=== PATIENT | male | born 1950 | race Hispanic/Latino ===

== ENCOUNTER 2019-03-16 08:37 | Emergency (ER) | payer MEDICARE, OTHER ==
[~2019-03-16] VITALS: Ht 167.6 cm; Wt 78.5 kg
--- OUTSIDE RECORDS SUMMARY | 2019-03-16 08:40 | XMS REPORT | Summary of Care ---
Author Author [facility] Organization [facility] Address Unknown Phone Unavailable Encounter [facility] Vic[facility](FIN) [id number] Date(s): 06/03/17 - 06/03/17 [facility] [address] [place] [address]- [phone] Discharge Disposition: Home or Self Care Attending Physician: Radha Sal MD Referring Physician: Radha Sal MD Vital Signs No data available for this section Problem List Condition Effective Dates Status Health Status Informant Benign essential 06/27/13 Active hypertension(Confirm ed)1, 2 Benign prostatic 06/27/13 Active hyperplasia3 Ex-smoker(Confirmed) 10/19/14 Active 4 Helicobacter pylori Active antibody positive(Confirmed) History of subtotal 11/16/14 Active thyroidectomy5, 6 History of partial Active thyroidectomy(Confir med) Hyperlipidemia(Confi 06/27/13 Active rmed)7, 8 Lung Active nodule(Confirmed) Thyroid 11/16/14 Active nodule(Confirmed)9, 10 Type II diabetes Active mellitus uncontrolled(Confirm ed) 1Data migrated from [employer] on 03/05/15. 2Data migrated from [employer] on 12/26/14. 3Data migrated from [employer] on 12/26/14. 4Data migrated from [employer] on 01/31/15. 5Data migrated from [employer] on 02/28/15. 6Data migrated from [employer] on 01/31/15. 7Data migrated from [employer] on 03/05/15. 8Data migrated from [employer] on 12/26/14. 9Data migrated from [employer] on 02/28/15. 10Data migrated from [employer] on 01/31/15. Allergies, Adverse Reactions, Alerts Substance Reaction Severity Status penicillins Active Medications No data available for this section Results No data available for this section Immunizations Given and Recorded Vaccine Date Status Refusal Reason Hx influenza vaccine-unspecified1 06/27/13 Given influenza virus vaccine, inactivated 06/25/15 Given influenza virus vaccine, inactivated2 06/27/13 Given pneumococcal 23-valent vaccine3 10/19/14 Given 1Result Comment: done. Migrated from OBS ; Data migrated from [employer] on 08/28/2015. 2Result Comment: fluzone (>3 yrs.) [[id number]]. Migrated from OBS ; Data migrated from [employer] on 08/28/2015. 3Result Comment: [facility]#[id number] ; Data migrated from [employer] on 08/29/2015. Procedures Procedure Date Related Diagnosis Body Site Partial thyroidectomy2012 1Left sided. Social History Social History Type Response Alcohol Current, Type Beer. Frequency: Daily. Smoking Status Former smoker; Ready to change: No; Concerns about tobacco use in household: No; Exposure to Tobacco Smoke None; Cigarette Smoking Last 365 Days No; Reg Smoking Cessation Counseling No Assessment and Plan No data available for this section
--- OUTSIDE RECORDS SUMMARY | 2019-03-16 08:40 | XMS REPORT | Summary of Care ---
Author Author [facility] Organization [facility] Address Unknown Phone Unavailable Encounter [facility](FIN) [id number] Date(s): 08/27/17 - 08/27/17 [facility] [address], [address] [place] [address]- [phone] Discharge Disposition: Home or Self Care Attending Physician: Radha Sal MD Vital Signs Most recent to 1 2 oldest [Reference Range]: Height 170.18 cm (08/27/17 7:44 AM) Temperature Oral 97.5 DegF [96.4-99.1 DegF] (08/27/17 7:44 AM) Blood Pressure 129/65 mmHg 143/83 mmHg [90-140/60-90 mmHg] (08/27/17 7:56 AM) *HI* (08/27/17 7:44 AM) Respiratory Rate 16 BRMIN [14-20 BRMIN] (08/27/17 7:44 AM) Peripheral Pulse 62 bpm Rate [60-100 bpm] (08/27/17 7:44 AM) Weight 78.182 kg (08/27/17 7:44 AM) Body Mass Index 27 m2 (08/27/17 7:44 AM) Problem List Condition Effective Dates Status Health Status Informant Benign essential 06/27/13 Active hypertension(Confirm ed)1, 2 Benign prostatic 06/27/13 Active hyperplasia(Confirme d)3 Ex-smoker(Confirmed) 10/19/14 Active 4 Helicobacter pylori Active antibody positive(Confirmed) History of partial Active thyroidectomy(Confir med) Hyperlipidemia(Confi 06/27/13 Active rmed)5, 6 Lung Active nodule(Confirmed) Thyroid 11/16/14 Active nodule(Confirmed)7, 8 Type II diabetes Active mellitus uncontrolled(Confirm ed) 1Data migrated from [employer] on 03/05/15. 2Data migrated from [employer] on 12/26/14. 3Data migrated from [employer] on 12/26/14. 4Data migrated from [employer] on 01/31/15. 5Data migrated from [employer] on 03/05/15. 6Data migrated from [employer] on 12/26/14. 7Data migrated from [employer] on 02/28/15. 8Data migrated from [employer] on 01/31/15. Allergies, Adverse Reactions, Alerts Substance Reaction Severity Status penicillins Active Medications clarithromycin 500 mg oral tablet 500 mg=1 tab, PO, Q12H, X 14 day, # 28 tab, 0 Refill(s), Pharmacy: [facility] Start Date: 08/29/17 Stop Date: 09/12/17 Status: Completed metroNIDAZOLE 500 mg oral tablet 500 mg=1 tab, PO, BID, X 14 day, # 28 tab, 0 Refill(s), [facility]acy: [facility] Start Date: 08/29/17 Stop Date: 09/12/17 Status: Completed pantoprazole 40 mg oral enteric coated tablet 40 mg=1 tab, PO, Daily, 20 minutes before breakfast, # 30 tab, 1 Refill(s), Phar ida: [facility] Start Date: 08/29/17 Status: Ordered Results No data available for this section Immunizations Given and Recorded Vaccine Date Status Refusal Reason influenza virus vaccine, inactivated1 06/17/17 Given influenza virus vaccine, inactivated 06/25/15 Given influenza virus vaccine, inactivated2 06/27/13 Given pneumococcal 23-valent vaccine3 10/19/14 Given Hx influenza vaccine-unspecified4 06/27/13 Given 1Result Comment: Patient waited in room ten mins no allergic reaction. 2Result Comment: fluzone (>3 yrs.) [[id number]]. Migrated from OBS ; Data migrated from [employer] on 08/28/2015. 3Result Comment: [facility]#[id number] ; Data migrated from [employer] on 08/29/2015. 4Result Comment: done. Migrated from OBS ; Data migrated from [employer] on 08/28/2015. Procedures Procedure Date Related Diagnosis Body Site Status Partial thyroidectomy1 2012 Completed 1Left sided. Social History Social History Type Response Alcohol Current, Type Beer. Frequency: Daily. Smoking Status Former smoker; Ready to change: No; Concerns about tobacco use in household: No; Exposure to Tobacco Smoke None; Cigarette Smoking Last 365 Days No; Reg Smoking Cessation Counseling No entered on: 08/27/17 Assessment and Plan No data available for this section
--- OUTSIDE RECORDS SUMMARY | 2019-03-16 08:40 | XMS REPORT | Summary of Care ---
Author Author [facility] Organization [facility] Address Unknown Phone Unavailable Encounter GERMÁN Zhang(FIN) [id number] Date(s): 06/10/18 - 06/10/18 [facility] [address] [place] [address]- [phone] Discharge Disposition: Home or Self Care Attending Physician: Radha Sal MD Vital Signs Most recent to 1 oldest [Reference Range]: Height 170.18 cm (06/10/18 12:22 PM) Temperature Oral 98.5 DegF [96.4-99.1 DegF] (06/10/18 12:22 PM) Blood Pressure 112/64 mmHg [90-140/60-90 mmHg] (06/10/18 12:22 PM) Respiratory Rate 14 BRMIN [14-20 BRMIN] (06/10/18 12:22 PM) Peripheral Pulse 87 bpm Rate [60-100 bpm] (06/10/18 12:22 PM) Weight 78.409 kg (06/10/18 12:22 PM) Body Mass Index 27.07 m2 (06/10/18 12:22 PM) Problem List Condition Effective Dates Status Health Status Informant Benign essential 06/27/13 Active hypertension(Confirm ed)1, 2 Benign prostatic 06/27/13 Active hyperplasia(Confirme d)3 Ex-smoker(Confirmed) 10/19/14 Active 4 Gastritis(Confirmed) Active Helicobacter pylori Active antibody positive(Confirmed) History of partial Active thyroidectomy(Confir med) Hypothyroidism(Confi Active rmed) Lung Active nodule(Confirmed) Mixed Active hyperlipidemia(Confi rmed) Thyroid 11/16/14 Active nodule(Confirmed)5, 6 Type II diabetes Active mellitus uncontrolled(Confirm ed) 1Data migrated from [employer] on 03/05/15. 2Data migrated from [employer] on 12/26/14. 3Data migrated from [employer] on 12/26/14. 4Data migrated from [employer] on 01/31/15. 5Data migrated from [employer] on 02/28/15. 6Data migrated from [employer] on 01/31/15. Allergies, Adverse Reactions, Alerts Substance Reaction Severity Status penicillins Active Medications Bromfed DM oral syrup 5 mL, PO, TID, PRN cough, X 8 day, # 120 mL, 0 Refill(s), Pharmacy: [facility] Start Date: 06/10/18 Stop Date: 06/18/18 Status: Completed glipiZIDE 5 mg oral tablet 5 mg=1 tab, PO, BID-Before Meals, # 180 tab, 1 Refill(s), Pharmacy: [facility] 5612 Start Date: 06/10/18 Stop Date: 07/01/18 Status: Completed lisinopril 5 mg oral tablet 5 mg=1 tab, PO, Daily, # 90 tab, 1 Refill(s), Pharmacy: [facility] Start Date: 06/10/18 Stop Date: 07/01/18 Status: Completed metFORMIN 500 mg oral tablet 1,000 mg=2 tab, PO, BID, # 360 tab, 1 Refill(s), Pharmacy: [facility] Start Date: 06/10/18 Stop Date: 07/01/18 Status: Completed pantoprazole 40 mg oral enteric coated tablet 40 mg=1 tab, PO, Daily, 20 minutes before breakfast, # 90 tab, 1 Refill(s), Megan prieto: [facility] Start Date: 06/10/18 Stop Date: 12/08/18 Status: Discontinued triamcinolone topical 0.1% cream 1 appl, TOP, BID, Apply to affected area(s), X 14 day, # 80 gm, 0 Refill(s), Wojciech han: [facility] Start Date: 06/10/18 Stop Date: 06/24/18 Status: Completed Results No data available for this section Immunizations Given and Recorded Vaccine Date Status Refusal Reason influenza virus vaccine, inactivated 06/10/18 Given influenza virus vaccine, inactivated1 06/17/17 Given influenza virus vaccine, inactivated 06/25/15 Given influenza virus vaccine, inactivated2 06/27/13 Given pneumococcal 23-valent vaccine3 10/19/14 Given Hx influenza vaccine-unspecified4 06/27/13 Given 1Result Comment: Patient waited in room ten mins no allergic reaction. 2Result Comment: fluzone (>3 yrs.) [[id number]]. Migrated from OBS ; Data migrated from [employer] on 08/28/2015. 3Result Comment: formerly named [facility]#[id number] ; Data migrated from [employer] on 08/29/2015. 4Result Comment: done. Migrated from OBS ; Data migrated from [employer] on 08/28/2015. Procedures Procedure Date Related Diagnosis Body Site Status Diabetic Retinopathy Study 7 field 06/10/18 Completed stereoscopic fundus photography1 Partial thyroidectomy2 2012 Completed 1diabetes mellitus with mild nonproliferative diabetic retinopathy without macular edema, bilateral Follow up in 6 months 2Left sided. Social History Social History Type Response Alcohol Past, Type Beer. Frequency: Daily. Smoking Status Former smoker; Ready to change: No; Concerns about tobacco use in household: No; Exposure to Tobacco Smoke None; Cigarette Smoking Last 365 Days No; Reg Smoking Cessation Counseling No entered on: 12/08/18 Assessment and Plan No data available for this section
--- OUTSIDE RECORDS SUMMARY | 2019-03-16 08:40 | XMS REPORT | Continuity of Care Document ---
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 [facility] [place] Pleural effusion (disorder) Active 02/08/2015 Problem 03/25/2015 Data migrated from [employer] on 02/28/15. [facility] PLEURAL EFFUSION Active 02/08/2015 Condition 02/08/2015 [facility] ABNORMAL LIVER FUNCTION TESTS Active 02/08/2015 Condition 02/08/2015 [facility] Group Thyroid nodule (disorder) Active 11/16/2014 Problem 02/27/2019 Data migrated from [employer] on 02/28/15. Data migrated from [employer] on 01/31/15. [facility] Group, [facility] [place],[facility] THYROIDECTOMY, SUBTOTAL, HX OF Active 11/16/2014 Condition 02/08/2015 [facility] Group THYROID NODULE Active 11/16/2014 Condition 02/08/[address] [facility] 240.9 BIG THYROID Active 11/09/2014 [facility] Ex-smoker (finding) Active 10/19/2014 Problem 02/27/2019 Data migrated from [employer] on 01/31/15. [facility] Abdominal aortic aneurysm (disorder) Active 10/19/2014 Problem 03/25/2015 Data migrated from [employer] on 01/31/15. [facility] Cough (finding) Active 10/19/2014 Problem 03/25/2015 Data migrated from [employer] on 01/31/15. [facility] [place] Thyroid lump (disorder) Active 10/19/2014 Problem 03/25/2015 Data migrated from [employer] on 01/31/15. [facility] [place] Onychomycosis of toenails (disorder) Active 10/19/2014 Problem 03/25/2015 Data migrated from [employer] on 01/31/15. [facility] Screening - health check (procedure) Active 10/19/2014 Problem 03/25/2015 Data migrated from [employer] on 01/31/15. [facility] Screening for malignant neoplasm of prostate (procedure) Active 10/19/2014 Problem 03/25/2015 Data migrated from [employer] on 01/31/15. [facility] Tinea pedis (disorder) Active 10/19/2014 Problem 03/25/2015 Data migrated from [employer] on 01/31/15. [facility] BODY MASS INDEX 28.0-28.9, ADULT Active 10/19/2014 Condition 02/08/2015 [facility] Group THYROID MASS Active 10/19/2014 Condition 02/08/2015 [facility] AAA Active 10/19/2014 Condition 02/08/2015 [facility] Group HX OF SMOKER Active 10/19/2014 Condition 02/08/2015 [facility] Group COUGH Active 10/19/2014 Condition 02/08/2015 [facility] Group PROSTATE NEOPLASM SCREENING Active 10/19/2014 Condition 02/08/2015 [facility] Group ONYCHOMYCOSIS, TOENAILS Active 10/19/2014 Condition 02/08/2015 [facility] Group TINEA PEDIS Active 10/19/2014 Condition 02/08/2015 [facility] Group PREVENTIVE HEALTH CARE Active 10/19/2014 Condition 02/08/2015 [facility] Group SCREENING FOR GLAUCOMA Active 10/19/2014 Condition 02/08/2015 [facility] NEED FOR PROPHYLACTIC VACCINATION AGAINST STREPTOCOCCUS PNEUMONIAE [PNEUMOCOCCUS] Active 10/19/2014 Condition 02/08/2015 [facility] Group DIABETES MELLITUS, TYPE II, UNCONTROLLED Active 07/04/2013 Condition 02/08/2015 [facility] Hyperlipidemia (disorder) Active 06/27/2013 Problem 10/21/2018 Data migrated from [employer] on 03/05/15. Data migrated from [employer] on 12/26/14. [facility], [facility] [place],[facility] Benign essential hypertension (disorder) Active 06/27/2013 Problem 02/27/2019 Data migrated from [employer] on 03/05/15. Data migrated from [employer] on 12/26/14. [facility] Group, [facility] [place],[facility] Benign prostatic hyperplasia (disorder) Active 06/27/2013 Problem 02/27/2019 Data migrated from [employer] on 12/26/14. [facility] Group, VISHNUD [place],[facility] Fatigue (finding) Active 06/27/2013 Problem 03/25/2015 Data migrated from [employer] on 03/05/15. Data migrated from [employer] on 12/26/14. [facility] [place] Diabetes mellitus type 2 (disorder) Active 06/27/2013 Problem 03/25/2015 Data migrated from [employer] on 03/05/15. Data migrated from [employer] on 12/26/14. [facility] DIABETES MELLITUS, TYPE II Inactive 06/27/2013 Condition 02/08/2015 Medical Group ESSENTIAL HYPERTENSION, BENIGN Active 06/27/2013 Condition 02/08/2015 [facility] HYPERLIPIDEMIA Active 06/27/2013 Condition 02/08/[address] [facility] SCREENING, COLON CANCER Active 06/27/2013 Condition 02/08/[address] [facility] FATIGUE Active 06/27/2013 Condition 02/08/2015 [facility] Group HYPERTROPHY PROSTATE W/O UR OBST & OTH LUTS Active 06/27/2013 Condition 02/08/2015 [facility] Group ACUTE BRONCHITIS Inactive 06/27/2013 Condition 02/08/2015 [facility] Group Helicobacter pylori antibody above reference range (finding) Active [facility] of subtotal thyroidectomy (situation) Active Problem 02/27/2019 [facility], [facility] [place],[facility] Lung mass (finding) Active Problem 02/27/2019 Medical [facility] Type II diabetes mellitus uncontrolled (finding) Active Problem 02/27/2019 [facility], [facility] [place],[facility] Gastritis (disorder) Active Problem 02/27/2019 Medical [facility] Hypothyroidism (disorder) Active Problem 02/27/[address] [facility] Mixed hyperlipidemia (disorder) Active Problem 02/27/[address] [facility] GOITER NOS Active [facility] ABDOM AORTIC ANEURYSM Active [place] COUGH Active [facility] GENERALIZED ENLARGED LYMPH NODES Active [facility] NONTOXIC GOITER, UNSPECIFIED Active [facility] NONTOXIC SINGLE THYROID NODULE Active [facility] Medications Medication Details Route Status Patient Instructions Ordering Provider Order Date Source pantoprazole 40 mg oral enteric coated tablet 40 mg=1 tab, PO, Daily, 20 minutes before breakfast, # 90 tab, 1 Refill(s), Pharmacy: [place] [address] Active 02/24/2019 [facility] Group lisinopril 5 mg oral tablet =1 tab, PO, Daily, # 90 tab, 1 Refill(s), Pharmacy: [place] [address] Active 02/24/2019 [facility] Metformin hydrochloride 500 MG Oral Tablet See Instructions, TAKE 2 TABLETS BY MOUTH IN THE MORNING AND 1 TABLET BY MOUTH IN THE EVENING WITH MEALS, # 270 tab, 1 Refill(s), Pharmacy: [place] [address] Active 02/24/2019 [facility] Glipizide 5 MG Oral Tablet =1 tab, PO, BID-Before Meals, S., # 180 tab, 1 Refill(s), Pharmacy: [place] [address] Active 02/24/2019 [facility] levothyroxine 25 mcg (0.025 mg) oral tablet 25 microgram=1 tab, PO, Daily, # 90 tab, 0 Refill(s), Pharmacy: [place] [address] Active 02/24/2019 [facility] Metformin hydrochloride 500 MG Oral Tablet See Instructions, TAKE 2 TABLETS BY MOUTH IN THE MORNING AND 1 TABLET BY MOUTH IN THE EVENING WITH MEALS, # 270 tab, 1 Refill(s), Pharmacy: [place] [address] Active 12/08/2018 [facility] lisinopril 5 mg oral tablet =1 tab, PO, Daily, # 90 tab, 1 Refill(s), Pharmacy: [place] [address] Active 12/08/2018 [facility] Glipizide 5 MG Oral Tablet =1 tab, PO, BID-Before Meals, S., # 180 tab, 1 Refill(s), Pharmacy: [place] [address] Active 12/08/2018 [facility] pantoprazole 40 mg oral enteric coated tablet 40 mg=1 tab, PO, Daily, 20 minutes before breakfast, # 90 tab, 1 Refill(s), Pharmacy: [place] [address] Active 12/08/2018 [facility] Group Nystatin [id number] UNT/ML Topical Cream 1 appl, TOP, QID, X 7 day, # 30 gm, 1 Refill(s), Pharmacy: [facility] Active 12/08/2018 [facility] Acetic Acid 20 MG/ML Otic Solution 5 drp, BOTH EARS, TID, X 7 day, # 15 ml, 0 Refill(s), Pharmacy: [facility] Active 10/04/2018 [facility] Group Triamcinolone Acetonide 1 MG/ML Topical Cream 1 appl, TOP, BID, Apply to affected area(s), X 14 day, # 80 gm, 0 Refill(s), Pharmacy: [facility] No Longer Active 06/10/2018 [facility] Brompheniramine Maleate 0.4 MG/ML / Dextromethorphan Hydrobromide 2 MG/ML / Pseudoephedrine Hydrochloride 6 MG/ML Oral Solution [Bromfed DM] 5 mL, PO, TID, PRN cough, X 8 day, # 120 mL, 0 Refill(s), Pharmacy: [facility] No Longer Active 06/10/2018 [facility] Metformin hydrochloride 500 MG Oral Tablet 1,000 mg=2 tab, PO, BID, # 360 tab, 1 Refill(s), Pharmacy: [facility] No Longer Active 06/10/2018 [facility] Group pantoprazole 40 mg oral enteric coated tablet 40 mg=1 tab, PO, Daily, 20 minutes before breakfast, # 90 tab, 1 Refill(s), Pharmacy: [facility] No Longer Active 06/10/2018 [facility] Glipizide 5 MG Oral Tablet 5 mg=1 tab, PO, BID-Before Meals, # 180 tab, 1 Refill(s), Pharmacy: [facility] No Longer Active 06/10/2018 [facility] Group lisinopril 5 mg oral tablet 5 mg=1 tab, PO, Daily, # 90 tab, 1 Refill(s), Pharmacy: [facility] No Longer Active 06/10/2018 [facility] Brompheniramine Maleate 0.4 MG/ML / Dextromethorphan Hydrobromide 2 MG/ML / Pseudoephedrine Hydrochloride 6 MG/ML Oral Solution [Bromfed DM] 5 mL, PO, TID, PRN cough, X 8 day, # 120 mL, 0 Refill(s), Pharmacy: [facility] 561 No Longer Active 03/25/2018 [facility] Group pantoprazole 40 mg oral enteric coated tablet 40 mg=1 tab, PO, Daily, 20 minutes before breakfast, # 30 tab, 1 Refill(s), Pharmacy: [facility] Active 12/24/2017 [facility] Metformin hydrochloride 500 MG Oral Tablet See Instructions, 2 tabs in AM and 1 tab in PM with meals, # 270 tab, 1 Refill(s), Pharmacy: [facility] Active 12/24/2017 [facility] Group lisinopril 5 mg oral tablet 5 mg=1 tab, PO, Daily, # 90 tab, 1 Refill(s), Pharmacy: [facility] Active 12/24/2017 [facility] Group Glipizide 5 MG Oral Tablet 5 mg=1 tab, PO, BID-Before Meals, # 180 tab, 1 Refill(s), Pharmacy: [facility] Active 12/24/2017 [facility] Group pantoprazole 40 mg oral enteric coated tablet 40 mg=1 tab, PO, Daily, 20 minutes before breakfast, # 30 tab, 1 Refill(s), Pharmacy: [facility] Active 08/30/2017 [facility] Group Metronidazole 500 MG Oral Tablet 500 mg=1 tab, PO, BID, X 14 day, # 28 tab, 0 Refill(s), Pharmacy: [facility] No Longer Active 08/30/2017 [facility] Group clarithromycin 500 mg oral tablet 500 mg=1 tab, PO, Q12H, X 14 day, # 28 tab, 0 Refill(s), Pharmacy: [facility] No Longer Active 08/30/2017 [facility] Group pantoprazole 40 mg oral enteric coated tablet 40 mg=1 tab, PO, Daily, 20 minutes before breakfast, # 30 tab, 3 Refill(s), Pharmacy: [facility] Active 06/17/2017 Medical Group NYSTATIN-TRIAMCINOLONE [id number] UNIT/GM-% CREA Apply afected area twice a day as needed No Longer Active 10/19/2014 [facility] Group CORTISPORIN [id number] SOLN apply 4 ggts in ears three times a day for a week No Longer Active 10/19/2014 [facility] Group METFORMIN HCL 1000 MG TABS Take one tablet by mouth two times a day Active 07/04/2013 [facility] ATORVASTATIN CALCIUM 10 MG TABS Take one tablet by mouth once a day Active 07/04/2013 [facility] ALBUTEROL SULFATE 0.63 MG/3ML NEBU nebs every 6 hours only as needed No Longer Active 07/04/2013 [facility] GLIPIZIDE 5 MG TABS Take one tablet by mouth two times a day Active 07/04/2013 [facility] ATORVASTATIN CALCIUM 10 MG TABS Take one tablet by mouth once a day Active 07/04/2013 [facility] METFORMIN HCL 500 MG TABS Take one tablet by mouth two times a day Active 07/04/2013 [facility] GLIPIZIDE 5 MG TABS Take one tablet by mouth two times a day Active 07/04/2013 [facility] METFORMIN HCL 500 MG TABS Take one tablet by mouth two times a day Active 07/04/2013 [facility] ZITHROMAX Z-NEHEMIAS 250 MG TABS Use as directed No Longer Active 06/27/2013 [facility] MUCINEX 600 MG [id number] Take one tablet every 12 hours No Longer Active 06/27/2013 [facility] LISINOPRIL 10 MG TABS take one tablet by mouth daily Active 06/27/2013 [facility] MUCINEX 600 MG [id number] Take one tablet every 12 hours No Longer Active 06/27/2013 [facility] LISINOPRIL 10 MG TABS take one tablet by mouth daily Active 06/27/2013 [facility] Allergies, Adverse Reactions, Alerts Substance Category Reaction Severity Reaction type Status Date Reported Comments Source PCN Drug allergy PCN 06/27/2013 [facility] penicillins Assertion Drug allergy Active [facility] Immunizations Immunization Date Given Site Status Last Updated Comments Source influenza virus vaccine, inactivated 06/10/2018 Left Deltoid completed [place] influenza virus vaccine, inactivated<sup>1</sup> 06/17/2017 Left Deltoid completed [facility] Result Comment: Patient waited in room ten mins no allergic reaction. [facility] influenza virus vaccine, inactivated 06/25/2015 Left Deltoid completed [facility] pneumococcal 23-valent vaccine<sup>3</sup> 10/19/2014 Left Deltoid completed [facility] Result Comment: [facility]#[id number] ; Data migrated from [employer] on 08/29/2015. [facility] Hx influenza vaccine-unspecified<sup>1</sup> 06/27/2013 completed [facility] Result Comment: done. Migrated from OBS ; Data migrated from [employer] on 08/28/2015. [facility] Hx influenza vaccine-unspecified<sup>4</sup> 06/27/2013 completed [facility] Result Comment: done. Migrated from OBS ; Data migrated from [employer] on 08/28/2015. [facility] influenza immunization (Flu Vax) has been administered 06/27/2013 completed [facility] influenza virus vaccine, inactivated<sup>2</sup> 06/27/2013 Left Deltoid completed [facility] Result Comment: fluzone (>3 yrs.) [[id number]]. Migrated from OBS ; Data migrated from [employer] on 08/28/2015. [facility] Results Order Name Results Value Reference Range Date Interpretation Comments Source Chemistry HGBA1C 7.2 - 5.6 02/03/2015 [facility] Chemistry SODIUM 138 MEQ/L 135 - 145 02/03/2015 [facility] Chemistry POTASSIUM 4.0 MEQ/L 3.5 - 5.1 02/03/2015 [facility] Chemistry CREATININE 0.8 0.5 - 1.4 02/03/2015 [facility] Chemistry BUN 15 7 - 22 02/03/[address] [facility] Chemistry BUN/CREAT 19 6 - 25 02/03/2015 [facility] Chemistry ALBUMIN 4.1 3.5 - 5.0 02/03/2015 [facility] Chemistry CALCIUM 9.4 8.5 - 10.5 02/03/2015 [facility] Chemistry SGPT (ALT) 61 0 - 65 02/03/2015 [facility] Chemistry SGOT (AST) 46 0 - 37 02/03/2015 [facility] Chemistry ALK PHOS 106 39 - 136 02/03/2015 [facility] Chemistry HGBA1C 7.2 - 5.6 02/01/2015 [facility] Chemistry SODIUM 138 MEQ/L 135 - 145 02/01/2015 [facility] Chemistry POTASSIUM 4.0 MEQ/L 3.5 - 5.1 02/01/2015 [facility] Chemistry CREATININE 0.8 0.5 - 1.4 02/01/2015 [facility] Chemistry BUN 15 7 - 22 02/01/2015 [facility] Chemistry BUN/CREAT 19 6 - 25 02/01/2015 [facility] Chemistry ALBUMIN 4.1 3.5 - 5.0 02/01/2015 [facility] Chemistry CALCIUM 9.4 8.5 - 10.5 02/01/2015 [facility] Chemistry SGPT (ALT) 61 0 - 65 02/01/2015 [facility] Chemistry SGOT (AST) 46 0 - 37 02/01/2015 [facility] Chemistry ALK PHOS 106 39 - 136 02/01/2015 [facility] Group Chemistry HEMOCCULT Negative 10/24/2014 [facility] Group Chemistry HEMOCCULT Negative 10/23/2014 [facility] Chemistry HEMOCCULT Negative 10/22/2014 [facility] Group Chemistry HGBA1C 8.5 - 5.6 10/19/2014 [facility] Chemistry TSH 3.210 0.360 - 3.740 10/19/2014 [facility] Chemistry CHOLESTEROL 125 - 199 10/19/2014 [facility] Chemistry TRIGLYCERIDE 122 - 149 10/19/2014 [facility] Chemistry HDL 41 >=61 10/19/2014 [facility] Chemistry LDL 60 - 99 10/19/2014 [facility] Chemistry SODIUM 138 MEQ/L 135 - 145 10/19/2014 [facility] Chemistry POTASSIUM 3.6 MEQ/L 3.5 - 5.1 10/19/2014 [facility] Chemistry CREATININE 0.8 0.5 - 1.4 10/19/2014 [facility] Chemistry BUN 12 7 - 22 10/19/2014 [facility] Chemistry BUN/CREAT 15 6 - 25 10/19/2014 [facility] Chemistry ALBUMIN 3.9 3.5 - 5.0 10/19/2014 [facility] Chemistry CALCIUM 8.9 8.5 - 10.5 10/19/2014 [facility] Chemistry SGPT (ALT) 50 0 - 65 10/19/2014 [facility] Chemistry SGOT (AST) 36 0 - 37 10/19/2014 [facility] Chemistry ALK PHOS 120 39 - 136 10/19/2014 [facility] Chemistry PSA 1.75 0.00 - 4.00 10/19/2014 [facility] Hematology HGB 15.4 14.0 - 18.0 10/19/2014 [facility] Hematology HCT 44.1 42.0 - 54.0 10/19/2014 [facility] Hematology PLATELETS 149 K/CMM 133 - 450 10/19/2014 [facility] Chemistry HGBA1C 8.0 - 5.6 06/27/2013 [facility] Chemistry TSH 1.730 0.360 - 3.740 06/27/2013 [facility] Chemistry CHOLESTEROL 143 - 199 06/27/2013 [facility] Chemistry TRIGLYCERIDE 122 - 149 06/27/2013 [facility] Chemistry HDL 37 >=61 06/27/2013 [facility] Chemistry LDL 82 - 99 06/27/2013 [facility] Chemistry SODIUM 140 MEQ/L 135 - 145 06/27/2013 [facility] Chemistry POTASSIUM 3.8 MEQ/L 3.5 - 5.1 06/27/2013 [facility] Chemistry CREATININE 0.9 0.5 - 1.4 06/27/2013 [facility] Chemistry BUN 16 7 - 22 06/27/2013 [facility] Chemistry BUN/CREAT 18 6 - 25 06/27/2013 [facility] Chemistry ALBUMIN 3.9 3.5 - 5.0 06/27/2013 [facility] Chemistry CALCIUM 9.2 8.5 - 10.5 06/27/2013 [facility] Chemistry SGPT (ALT) 46 0 - 65 06/27/2013 [facility] Chemistry SGOT (AST) 35 0 - 37 06/27/2013 [facility] Chemistry ALK PHOS 111 39 - 136 06/27/2013 [facility] Chemistry PSA 0.91 0.00 - 4.00 06/27/2013 [facility] Hematology HGB 15.5 14.0 - 18.0 06/27/2013 [facility] Hematology HCT 45.3 42.0 - 54.0 06/27/2013 [facility] Hematology PLATELETS 149 K/CMM 133 - 450 06/27/2013 [facility] Pathology Reports No Data Provided for This Section Diagnostic Reports Report Value Date Source Thyroid US Clinical Indication: - thyroid nodule Comparison: 06/03/2017 TECHNIQUE: Sonographic evaluation of the thyroid gland is performed FINDINGS: The right thyroid gland measures 3.6 x 1.6 x 1.3 cm. The left thyroid gland measures 1.9 x 0.8 x 1.0 cm. The thyroid isthmus is unremarkable There is normal bilateral thyroid gland contour and morphology. There is normal thyroid parenchymal echotexture. There are no solid or cystic nodules noted. There is a colloid cyst in the medial right midpole which measures 5 mm in size. There is hyperechoic focus with posterior shadowing in the thyroid isthmus. There is no adjacent jugular chain lymphadenopathy. IMPRESSION: 1. Stable 5 mm colloid cyst within the right medial mid pole. 2. Stable Calcification of the thyroid isthmus is noted. Recommendations for Thyroid Nodules 1 cm or Larger in Maximum Diameter: AJR: 178, September 2001 ULTRASOUND FEATURE RECOMMENDATION Solitary Nodule - Microcalcifications - Strongly consider US-guided FNA if > 1 cm - Solid or coarse calcifications - Strongly consider US-guided FNA if > 1.5 cm - Mixed solid and cystic - Consider US-guided FNA if > 2cm - None of the above but substantial growth - Consider US-guided FNA - Almost entirely cystic and none of the above - US-guided FNA probably unnecessary Multiple Nodules - Consider US-guided FNA of one or more nodules, with selection prioritized on basis of criteria (in order listed) for solitary nodule. SL: [id number] 04/03/2018 [facility] US Clinical Indication: - nodule. Comparison: Thyroid sonogram 11/16/2014. TECHNIQUE: Multiplanar grayscale and color Doppler ultrasound of the neck were obtained in the area of the thyroid. FINDINGS: Thyroid parenchyma: Normal. Size: Right thyroid: 3.5 x 1.6 x 1.6 cm Left thyroid: 2.2 x 1.5 x 0.9 cm Isthmus thickness: 0.3 cm Thyroid nodules: Nodule 1: Location: Right lateral Size: 0.7 x 0.7 x 0.5 cm Composition: Spongiform (0 points). Echogenicity: Hypoechoic (2 points). Shape: Wider than tall (0 points). Margins: Ill-defined (0 points). Echogenic foci: Large comet-tail artifact (0 points). Other: Previously 0.7 x 0.7 x 0.4 cm ACR TI-RADS Score: TR2 - Not suspicious (total 1-2 points). -- ACR recommendation: No f/u or FNA. Nodule 2: Location: Right medial Size: 0.5 x 0.5 x 0.3 cm Composition: Cystic or almost completely cystic (0 points). Echogenicity: Anechoic (0 points). Shape: Wider than tall (0 points). Margins: Smooth (0 points). Echogenic foci: Absent (0 points). Other: None. ACR TI-RADS Score: TR1 - Benign (total 0 points). -- ACR recommendation: No f/u or FNA. Cervical lymph nodes: Normal. IMPRESSION: 1. No significant change from prior exam. 2. Thyroid nodule(s) detailed above do(es) not meet KYRIE criteria for FNA. REFERENCE: Keyonna LEBLANC et al. 2015 [place] [employer] Management Guidelines for Adult Patients with Thyroid Nodules and Differentiated Thyroid Cancer. Thyroid. 2016; 26(1):1-133. SL: KIMBER 06/03/2017 [facility] Chest wo contrast CT {CT CHEST WITHOUT CONTRAST} TECHNIQUE: Sequential trans-axial images were obtained through the chest without administration of iodinated contrast. Coronal and sagittal reconstructions were obtained. CT Radiation Dose DLP: 654.06 mGy-cm INDICATION: 511.9 Unspecified Pleural Effusion COMPARISON: Chest x-ray 11/13/2014 FINDINGS: Please note lack of contrast limited evaluation. There are no lung nodules.. There is no interstitial lung disease. There are no pleural effusions or pneumothorax. The central airway is normal. Borderline enlarged precarinal lymph node, image 28. Additionally, there is fullness of the left hilar region with shotty left hilar lymph nodes the Status post partial left thyroid thickening. Small hypodense left inferior pole thyroid nodule. Calcification of the thoracic aorta and coronary arteries. The visualized upper abdomen demonstrate diffuse fatty infiltration of the liver. Spine are calcification. There are no definite significant osseous abnormalities seen. Bilateral gynecomastia. IMPRESSION: Please note lack of contrast limits evaluation. Shotty left hilar lymph nodes. Bronchoscopic evaluation or follow-up CT chest in 3 months is recommended. Specifically, no evidence of pleural effusion. Small thyroid nodule. Hepatic steatosis. 03/22/2015 [facility] Chest 2 views DX NAME: QASIM ZAMORA : 1950 SEX: M Ordering Physician: Radha Crocker Chest 2 views : Nov 16, 2014 08:30:00 AM. CLINICAL INDICATION: cough 786.2, hx. of smoker v15.82. Comparison Examination: 10/05/2004. FINDINGS: Lateral blunting of the left costophrenic angle may represent small left pleural effusion or pleural thickening. Degenerative changes seen about the thoracic spine. Cardiac and mediastinal structures are stable including aortic calcification. No focal infiltrates within the lungs, no edema, no right pleural effusion and no pneumothorax. SL: 14 11/16/2014 [facility] Abdomen Aortic Aneurysm (AAA) US ULTRASOUND ABDOMINAL AORTA: HISTORY: Rule out aneurysm. FINDINGS: There is no evidence of abdominal aortic aneurysm. The infrarenal aorta measures 1.7 cm in maximum transverse dimension. The proximal common iliac arteries measure 8 mm in diameter. Triphasic waveforms are demonstrated in the aorta. IMPRESSION: No evidence of abdominal aortic aneurysm. SL:13 11/16/2014 [facility] Thyroid US HISTORY: Thyroid mass. Thyroid ultrasound exam. COMPARISON: No prior. Right lobe 3.4 x 2 x 1.8 cm. Left lobe 1.8 x 1.0 x 1.3 cm. Isthmus is 3 mm. Several subcentimeter thyroid nodules are noted including 5 mm right isthmic nodule and 7 mm right thyroid lobe lower pole nodule. This 7 mm nodule demonstrates internal calcification. A 3 mm calcified nodule is present in the left lobe. There is no dominant mass otherwise appreciated. IMPRESSION: Small thyroid gland. Several subcentimeter nodules are noted. The largest is 7 mm in the right lobe, containing calcifications. SL:11/16/2014 [facility] Consultation Notes No Data Provided for This Section Discharge Summaries No Data Provided for This Section History and Physicals No Data Provided for This Section Vital Signs Vital Sign Value Date Comments Source BMI Calculated 27.02 02/24/2019 [facility] Heart Rate 68 02/24/2019 [facility] Respitory Rate 16 02/24/2019 [facility] Temperature Oral (F) 97.3 F 02/24/2019 [facility] Weight 78.239 02/24/2019 [facility] Height 170.18 cm 02/24/2019 [facility] Systolic (mm Hg) 113 02/24/2019 [facility] Diastolic (mm Hg) 60 02/24/2019 [facility] Height 170.18 cm 12/08/2018 [facility] Weight 79.545 12/08/2018 [facility] BMI Calculated 27.47 12/08/2018 [facility] Temperature Oral (F) 98.2 F 12/08/2018 [facility] Heart Rate 66 12/08/2018 [facility] Systolic (mm Hg) 122 12/08/2018 [facility] Diastolic (mm Hg) 73 12/08/2018 [facility] Respitory Rate 16 12/08/2018 [facility] Systolic (mm Hg) 138 10/04/2018 [facility] Diastolic (mm Hg) 80 10/04/2018 [facility] Heart Rate 86 10/04/2018 [facility] Respitory Rate 16 10/04/2018 [facility] Temperature Oral (F) 98.1 F 10/04/2018 [facility] BMI Calculated 27 10/04/2018 [facility] Weight 78.182 10/04/2018 [facility] Height 170.18 cm 10/04/2018 [facility] BMI Calculated 27.07 06/10/2018 [facility] Height 170.18 cm 06/10/2018 [facility] Weight 78.409 06/10/2018 [facility] Respitory Rate 14 06/10/2018 [facility] Temperature Oral (F) 98.5 F 06/10/2018 [facility] Heart Rate 87 06/10/2018 [facility] Systolic (mm Hg) 112 06/10/2018 [facility] Diastolic (mm Hg) 64 06/10/2018 [facility] Systolic (mm Hg) 115 03/24/2018 [facility] Diastolic (mm Hg) 72 03/24/2018 [facility] Respitory Rate 16 03/24/2018 [facility] Heart Rate 73 03/24/2018 [facility] Temperature Oral (F) 97.3 F 03/24/2018 [facility] Height 170.18 cm 03/24/2018 [facility] Weight 78.182 03/24/2018 [facility] BMI Calculated 27 03/24/2018 [facility] Height 170.18 cm 12/24/2017 [facility] Weight 77.727 12/24/2017 [facility] BMI Calculated 26.84 12/24/2017 [facility] Heart Rate 64 12/24/2017 [facility] Systolic (mm Hg) 141 12/24/2017 [facility] Diastolic (mm Hg) 81 12/24/2017 [facility] Respitory Rate 16 12/24/2017 [facility] Temperature Oral (F) 97.0 F 12/24/2017 [facility] Systolic (mm Hg) 129 08/27/2017 [facility] Diastolic (mm Hg) 65 08/27/2017 [facility] Height 170.18 cm 08/27/2017 [facility] Weight 78.182 08/27/2017 [facility] BMI Calculated 27 08/27/2017 [facility] Heart Rate 62 08/27/2017 [facility] Respitory Rate 16 08/27/2017 [facility] Temperature Oral (F) 97.5 F 08/27/2017 [facility] Systolic (mm Hg) 143 08/27/2017 [facility] Diastolic (mm Hg) 83 08/27/2017 [facility] Height 170.18 cm 06/17/2017 [facility] Weight 80 06/17/2017 [facility] BMI Calculated 27.62 06/17/2017 [facility] Heart Rate 70 06/17/2017 [facility] Temperature Oral (F) 98.9 F 06/17/2017 [facility] Respitory Rate 16 06/17/2017 [facility] Systolic (mm Hg) 124 06/17/2017 [facility] Diastolic (mm Hg) 77 06/17/2017 [facility] Height 66 02/08/2015 [facility] Weight 178 02/08/2015 [facility] Temperature Oral (F) 97.9 F 02/08/2015 [facility] Respitory Rate 14 02/08/2015 [facility] Heart Rate 75 02/08/2015 [facility] Systolic (mm Hg) 131 02/08/2015 [facility] Diastolic (mm Hg) 75 02/08/2015 [facility] Height 66 11/09/2014 [facility] Weight 174 11/09/2014 [facility] Temperature Oral (F) 97.6 F 11/09/2014 [facility] Respitory Rate 16 11/09/2014 [facility] Systolic (mm Hg) 127 11/09/2014 [facility] Diastolic (mm Hg) 78 11/09/2014 [facility] Heart Rate 83 11/09/2014 [facility] Height 66 10/19/2014 [facility] Weight 174 10/19/2014 [facility] Temperature Oral (F) 98.5 F 10/19/2014 [facility] Respitory Rate 16 10/19/2014 [facility] Heart Rate 75 10/19/2014 [facility] Systolic (mm Hg) 153 10/19/2014 [facility] Diastolic (mm Hg) 87 10/19/2014 [facility] Weight 172.38 07/04/2013 [facility] Respitory Rate 16 07/04/2013 [facility] Heart Rate 87 07/04/2013 [facility] Systolic (mm Hg) 124 07/04/2013 [facility] Diastolic (mm Hg) 74 07/04/2013 [facility] Respitory Rate 16 06/27/2013 [facility] Height 66 06/27/2013 [facility] Systolic (mm Hg) 131 06/27/2013 [facility] Diastolic (mm Hg) 83 06/27/2013 [facility] Weight 166 06/27/[address] [facility] Heart Rate 81 06/27/2013 [facility] Temperature Oral (F) 98.9 F 06/27/[address] [facility] Encounters Location Location Details Encounter Type Encounter Number Reason For Visit Attending Provider ADM Date DC Date Status Source [facility] Office Visit [id number] Radha Crocker MD 10/19/2014 10/19/2014 Medical [facility] Lab Report [id number] Radha Crocker MD 10/19/2014 10/19/2014 Medical [facility] Lab Report [id number] Radha Crocker MD 10/24/2014 10/24/2014 Medical [facility] Office Visit [id number] Radha Crocker MD 11/09/2014 11/09/2014 Medical [facility] Outpatient [id number] Radha Crocker 11/16/2014 11/17/2014 [facility] Lab Report [id number] Radha Crocker MD 02/01/2015 02/01/2015 [facility] Lab Report [id number] Radha Crocker MD 02/03/2015 02/03/2015 Medical [facility] Office Visit [id number] Radha Crocker MD 02/08/2015 02/08/2015 [facility] Outpatient [id number] RADHA CROCKER 02/08/2015 Active [facility] [id number] Radha Crocker 03/22/2015 03/23/2015 [facility] [id number] RANDY GAGE 06/25/2015 Active [facility] Outpatient [id number] RADHA CROCKER 10/25/2015 Active [facility] Outpatient [id number] RADHA CROCKER 11/29/2015 Active [facility] Outpatient [id number] RADHA CROCKER 04/01/2016 Active [facility] Outpatient [id number] RADHA CROCKER 04/29/2016 Active [facility] [id number] RADHA CROCKER 07/09/2016 Active [facility] Outpatient [id number] RADHA CROCKER 11/06/2016 Active [facility] Outpatient [id number] RADHA CROCKER 03/09/2017 Active [facility]patient [id number] RADHA CROCKER 03/12/2017 Active [facility] Outpatient [id number] RADHA CROCKER 04/21/2017 Active [facility] Outpatient [id number] RADHA CROCKER 05/04/2017 Active [facility] Outpatient [id number] Radha Crocker 06/03/2017 06/04/2017 [facility] [id number] RADHA CROCKER 06/17/2017 Active [facility] [id number] Radha Crocker 06/17/2017 06/18/2017 [facility] Outpatient [id number] RADHA CROCKER 08/27/2017 Active [facility] [id number] Radha Crocker 08/27/2017 08/28/2017 [facility] Outpatient [id number] RADHA CROCKER 12/24/2017 Active [facility]patient [id number] Radha Crocker 12/24/2017 12/25/2017 [facility] Outpatient [id number] RADHA CROCKER 03/24/2018 Active [facility]patient [id number] Radha Crocker 03/24/2018 03/25/2018 [facility] Outpatient [id number] Radha Crocker 04/03/2018 04/04/2018 [facility]patient [id number] RADHA CROCKER 06/10/2018 Active [facility] [id number] Radha Crocker 06/10/2018 06/11/2018 [facility] Outpatient [id number] RADHA CROCKER 10/04/2018 Active [facility] Outpatient [id number] Radha Corcker 10/04/2018 10/05/2018 [facility] Outpatient [id number] Radha Crocker 12/08/2018 Active [facility] Outpatient [id number] Radha Crocker 12/08/2018 12/09/2018 [facility] Outpatient [id number] Radha Jonelle 02/24/2019 Active [facility] [id number] Radha Jonelle 02/24/2019 02/25/2019 [facility] Procedures Procedure Code Date Perfomer Comments Source Diabetic Retinopathy Study 7 field stereoscopic fundus photography<sup>1</sup> [id number] 06/10/2018 diabetes mellitus with mild nonproliferative diabetic retinopathy without macular edema, bilateral Follow up in 6 months [facility] diabetic foot check [id number] 10/19/2014 yes [facility] Partial thyroidectomy<sup>1</sup> [id number] 07/27/2012 Left sided. [facility] Partial thyroidectomy<sup>2</sup> [id number] 07/27/2012 Left sided. [facility] Assessment and Plan No Data Provided for This Section Plan of Care No Data Provided for This Section Social History Social History Date Source Social History TypeResponse Alcohol Past, Type Beer. Frequency: Daily. Smoking Status Former smoker; Ready to change: No; Concerns about tobacco use in household: No; Exposure to Tobacco Smoke None; Cigarette Smoking Last 365 Days No; Reg Smoking Cessation Counseling No entered on: 10/04/18 06/10/2018 [facility] Social History TypeResponse Alcohol Past, Type Beer. Frequency: Daily. Smoking Status Former smoker; Ready to change: No; Concerns about tobacco use in household: No; Exposure to Tobacco Smoke None; Cigarette Smoking Last 365 Days No; Reg Smoking Cessation Counseling No entered on: 02/24/19 06/10/2018 [facility] No data available for this section 03/23/2015 [facility] Family History No Data Provided for This Section Advance Directives No Data Provided for This Section Functional Status No Data Provided for This Section
--- OUTSIDE RECORDS SUMMARY | 2019-03-16 08:40 | XMS REPORT | Summary of Care ---
Author Author [facility] Organization [facility] Address Unknown Phone Unavailable Encounter GERMÁN Zhang(FIN) [id number] Date(s): 12/08/18 - 12/08/18 [facility] [address] [place] [address]- Discharge Disposition: Home or Self Care Attending Physician: Radha Sal MD Vital Signs Most recent to 1 oldest [Reference Range]: Height 170.18 cm (12/08/18 7:35 AM) Temperature Oral 98.2 DegF [96.4-99.1 DegF] (12/08/18 7:35 AM) Blood Pressure 122/73 mmHg [90-140/60-90 mmHg] (12/08/18 7:35 AM) Respiratory Rate 16 BRMIN [14-20 BRMIN] (12/08/18 7:35 AM) Peripheral Pulse 66 bpm Rate [60-100 bpm] (12/08/18 7:35 AM) Weight 79.545 kg (12/08/18 7:35 AM) Body Mass Index 27.47 m2 (12/08/18 7:35 AM) Problem List Condition Effective Dates Status [...] [employer] on 12/26/14. 4Data migrated from [employer] on 01/31/15. 5Data migrated from [employer] on 02/28/15. 6Data migrated from [employer] on 01/31/15. Allergies, Adverse Reactions, Alerts Substance Reaction Severity Status penicillins Active Medications glipiZIDE 5 mg oral tablet =1 tab, PO, BID-Before Meals, S., # 180 tab, 1 Refill(s), Pharmacy: [facility]12 Start Date: 12/08/18 Status: Ordered lisinopril 5 mg oral tablet =1 tab, PO, Daily, # 90 tab, 1 Refill(s), Pharmacy: [facility] 5612 Start Date: 12/08/18 Status: Ordered metFORMIN 500 mg oral tablet See Instructions, TAKE 2 TABLETS BY MOUTH IN THE MORNING AND 1 TABLET BY MOUTH I N THE EVENING WITH MEALS, # 270 tab, 1 Refill(s), Pharmacy: [facility] 561 2 Start Date: 12/08/18 Status: Ordered nystatin topical 100,000 units/g cream 1 appl, TOP, QID, X 7 day, # 30 gm, 1 Refill(s), Pharmacy: [facility] 5612 Start Date: 12/08/18 Stop Date: 12/22/18 Status: Ordered pantoprazole 40 mg oral enteric coated tablet 40 mg=1 tab, PO, Daily, 20 minutes before breakfast, # 90 tab, 1 Refill(s), [facility]: [facility] 5612 Start Date: 12/08/18 Stop Date: 06/06/19 Status: Ordered Results No data available for [...] allergic reaction. 2Result Comment: fluzone (>3 yrs.) [[id number]]. Migrated from OBS ; Data migrated from [employer] on 08/28/2015. 3Result Comment: [facility]#[id number] ; Data migrated from [email or web address] on 08/29/2015. 4Result Comment: done. Migrated from [facility] ; Data migrated from [email or web address] on 08/28/2015. Procedures Procedure Date Related Diagnosis [...]
--- OUTSIDE RECORDS SUMMARY | 2019-03-16 08:40 | XMS REPORT | Summary of Care ---
Author Author [facility] Organization [facility] Address Unknown Phone Unavailable Encounter HQ Vicente(FIN) [id number] Date(s): 08/27/17 - 08/27/17 [facility] [address], [address] [place], [place] [address]- [phone] Discharge Disposition: Home or Self Care Attending [...] day, # 28 tab, 0 Refill(s), Pharmacy: [facility] Start Date: 08/29/17 Stop Date: 09/12/17 Status: Completed metroNIDAZOLE 500 mg oral tablet 500 mg=1 tab, PO, BID, X 14 day, # 28 tab, 0 Refill(s), Pharmacy: [facility]12 Start Date: 08/29/17 Stop Date: 09/12/17 Status: Completed pantoprazole 40 mg oral enteric coated tablet 40 mg=1 tab, PO, Daily, 20 minutes before breakfast, # 30 tab, 1 Refill(s), Phar ida: [facility] Start Date: 08/29/17 Status: Ordered [...] allergic reaction. 2Result Comment: fluzone (>3 yrs.) [[id number]]. Migrated from OBS ; Data migrated from [employer] on 08/28/2015. 3Result Comment: [facility]#[id number] ; Data migrated from [employer] on [...]
--- OUTSIDE RECORDS SUMMARY | 2019-03-16 08:40 | XMS REPORT | Summary of Care ---
Author Organization Unknown Address Unknown Phone Unavailable Encounter HQ Encntr_frieda(DEANDRE) [id number] Date(s): 11/16/14 - 11/16/14 [facility] [address] [place] [address]- [phone] Discharge Disposition: Home Physician Attending: Radha Sal MD Physician_Referring: Radha Sal MD Vital Signs No data available for this section Problem List No data available for this section Allergies, Adverse Reactions, Alerts Substance Reaction Severity Status penicillins Active Medications No data available for this section Results No data available for this section Immunizations No data available for this section Procedures No data available for this section Social History No data available for this section Assessment and Plan No data available for this section
--- OUTSIDE RECORDS SUMMARY | 2019-03-16 08:40 | XMS REPORT | Summary of Care ---
Author Author [facility] Organization [facility] Address Unknown Phone Unavailable Encounter HQ Vicente(FIN) [id number] Date(s): 02/24/19 - 02/24/19 [facility] [address] [place] [address]- Discharge Disposition: Home or Self Care Attending Physician: Radha Sal MD Vital Signs Most recent to 1 oldest [Reference Range]: Height 170.18 cm (02/24/19 7:34 AM) Temperature Oral 97.3 DegF [96.4-99.1 DegF] (02/24/19 7:34 AM) Blood Pressure 113/60 mmHg [90-140/60-90 mmHg] (02/24/19 7:34 AM) Respiratory Rate 16 BRMIN [14-20 BRMIN] (02/24/19 7:34 AM) Peripheral Pulse 68 bpm Rate [60-100 bpm] (02/24/19 7:34 AM) Weight 78.239 kg (02/24/19 7:34 AM) Body Mass Index 27.02 m2 (02/24/19 7:34 AM) Problem List Condition Effective Dates Status [...] Centricity on 12/26/14. 4Data migrated from [employer] on 01/31/15. 5Data migrated from [employer] on 02/28/15. 6Data migrated from [employer] on 01/31/15. Allergies, Adverse Reactions, Alerts Substance Reaction Severity Status penicillins Active Medications glipiZIDE 5 mg oral tablet =1 tab, PO, BID-Before Meals, S., # 180 tab, 1 Refill(s), Pharmacy: [facility] 5612 Start Date: 02/24/19 Status: Ordered levothyroxine 25 mcg (0.025 mg) oral tablet 25 microgram=1 tab, PO, Daily, # 90 tab, 0 Refill(s), Pharmacy: [facility]12 Start Date: 02/24/19 Status: Ordered lisinopril 5 mg oral tablet =1 tab, PO, Daily, # 90 tab, 1 Refill(s), Pharmacy: [facility] 5612 Start Date: 02/24/19 Status: Ordered metFORMIN 500 mg oral tablet See Instructions, TAKE 2 TABLETS BY MOUTH IN THE MORNING AND 1 TABLET BY MOUTH I N THE EVENING WITH MEALS, # 270 tab, 1 Refill(s), Pharmacy: [facility] 561 2 Start Date: 02/24/19 Status: Ordered pantoprazole 40 mg oral enteric coated tablet 40 mg=1 tab, PO, Daily, 20 minutes before breakfast, # 90 tab, 1 Refill(s), [facility]: [facility] 5612 Start Date: 02/24/19 Stop Date: 08/23/19 Status: Ordered Results No data available for [...] allergic reaction. 2Result Comment: fluzone (>3 yrs.) [[id number]]. Migrated from OBS ; Data migrated from [employer] on 08/28/2015. 3Result Comment: [facility]#[id number] ; Data migrated from [employer] on 08/29/2015. 4Result Comment: done. Migrated from OBS ; Data migrated from [employer] on 08/28/2015. Procedures Procedure Date Related Diagnosis [...] Smoking Cessation Counseling No entered on: 02/24/19 Assessment and Plan No data available for this section
--- OUTSIDE RECORDS SUMMARY | 2019-03-16 08:40 | XMS REPORT | Summary of Care ---
Author Author [facility] Organization [facility] Address Unknown Phone Unavailable Encounter GERMÁN Zhang(FIN) [id number] Date(s): 12/24/17 - 12/24/17 [facility] [address], [address] [place], [place] [address]- [phone] Discharge Disposition: Home or Self Care Attending Physician: Radha Sal MD Vital Signs Most recent to 1 oldest [Reference Range]: Height 170.18 cm (12/24/17 7:32 AM) Temperature Oral 97.0 DegF [96.4-99.1 DegF] (12/24/17 7:32 AM) Blood Pressure 141/81 mmHg [90-140/60-90 mmHg] *HI* (12/24/17 7:32 AM) Respiratory Rate 16 BRMIN [14-20 BRMIN] (12/24/17 7:32 AM) Peripheral Pulse 64 bpm Rate [60-100 bpm] (12/24/17 7:32 AM) Weight 77.727 kg (12/24/17 7:32 AM) Body Mass Index 26.84 m2 (12/24/17 7:32 AM) Problem List Condition Effective Dates Status [...] Active Medications glipiZIDE 5 mg oral tablet 5 mg=1 tab, PO, BID-Before Meals, # 180 tab, 1 Refill(s), [facility] Start Date: 12/24/17 Stop Date: 06/22/18 Status: Ordered lisinopril 5 mg oral tablet 5 mg=1 tab, PO, Daily, # 90 tab, 1 Refill(s), Pharmacy: [facility] Start Date: 12/24/17 Status: Ordered metFORMIN 500 mg oral tablet See Instructions, 2 tabs in AM and 1 tab in PM with meals, # 270 tab, 1 Refill(s ), Pharmacy: [facility] Start Date: 12/24/17 Status: Ordered pantoprazole 40 mg oral enteric coated tablet 40 mg=1 tab, PO, Daily, 20 minutes before breakfast, # 30 tab, 1 [facility]ill[facility] Start Date: 12/24/17 Status: Ordered Results No data available for this section Immunizations Given and Recorded Vaccine Date Status Refusal Reason influenza virus vaccine, inactivated1 06/17/17 Given influenza virus vaccine, inactivated 06/25/15 Given influenza virus vaccine, inactivated2 06/27/13 Given pneumococcal 23-valent vaccine3 10/19/14 Given Hx influenza vaccine-unspecified4 06/27/13 Given 1Result Comment: Patient waited in room ten mins no allergic reaction. 2Result Comment: fluzone (>3 yrs.) [[id number]]. Migrated from OBS ; Data migrated from [employer] on 08/28/2015. 3Result Comment: [facility]#[id number] ; Data migrated from [employer] on 08/29/2015. 4Result Comment: done. Migrated from OBS ; Data migrated from [employer] on 08/28/2015. Procedures Procedure Date Related Diagnosis Body Site Status Partial thyroidectomy1 2013 Completed 1Left sided. Social History Social History Type Response Alcohol Current, Type Beer. Frequency: Daily. Smoking Status Former smoker; Ready to change: No; Concerns about tobacco use in household: No; Exposure to Tobacco Smoke None; Cigarette Smoking Last 365 Days No; Reg Smoking Cessation Counseling No entered on: 12/24/17 Assessment and Plan No data available for this section
--- OUTSIDE RECORDS SUMMARY | 2019-03-16 08:40 | XMS REPORT | Summary of Care ---
Author Author [facility] Organization [facility] Address Unknown Phone Unavailable Encounter HQ Vicente(FIN) [id number] Date(s): 08/27/17 - 08/27/17 [facility] [address], [address] [place], [place] [address]- [phone] Discharge Disposition: Home or Self Care Attending [...] day, # 28 tab, 0 Refill(s), Pharmacy: [facility] Start Date: 08/29/17 Stop Date: 09/12/17 Status: Completed metroNIDAZOLE 500 mg oral tablet 500 mg=1 tab, PO, BID, X 14 day, # 28 tab, 0 Refill(s), Pharmacy: [facility]12 Start Date: 08/29/17 Stop Date: 09/12/17 Status: Completed pantoprazole 40 mg oral enteric coated tablet 40 mg=1 tab, PO, Daily, 20 minutes before breakfast, # 30 tab, 1 Refill(s), Phar ida: [facility] Start Date: 08/29/17 Status: Ordered [...] allergic reaction. 2Result Comment: fluzone (>3 yrs.) [[id number]]. Migrated from OBS ; Data migrated from [employer] on 08/28/2015. 3Result Comment: [facility]#[id number] ; Data migrated from [employer] Cent[employer] on [...]
--- OUTSIDE RECORDS SUMMARY | 2019-03-16 08:40 | XMS REPORT | Summary of Care ---
Author Author [facility] Organization [facility] Address Unknown Phone Unavailable Encounter HQ Vicente(FIN) [id number] Date(s): 06/17/17 - 06/17/17 [facility] [address], [address] [place], [place] [address]- [phone] Discharge Disposition: Home or Self Care Attending Physician: Radha Sal MD Vital Signs Most recent to 1 oldest [Reference Range]: Height 170.18 cm (06/17/17 10:43 AM) Temperature Oral 98.9 DegF [96.4-99.1 DegF] (06/17/17 10:43 AM) Blood Pressure 124/77 mmHg [90-140/60-90 mmHg] (06/17/17 10:43 AM) Respiratory Rate 16 BRMIN [14-20 BRMIN] (06/17/17 10:43 AM) Peripheral Pulse 70 bpm Rate [60-100 bpm] (06/17/17 10:43 AM) Weight 80 kg (06/17/17 10:43 AM) Body Mass Index 27.62 m2 (06/17/17 10:43 AM) Problem List Condition Effective Dates Status [...] Substance Reaction Severity Status penicillins Active Medications pantoprazole 40 mg oral enteric coated tablet 40 mg=1 tab, PO, Daily, 20 minutes before breakfast, # 30 tab, 3 Refill(s), Megan prieto: [id number] Start Date: 06/17/17 Status: Ordered Results No data available for this section Immunizations Given and Recorded Vaccine Date Status Refusal Reason influenza virus vaccine, inactivated1 06/17/17 Given influenza virus vaccine, inactivated 06/25/15 Given influenza virus vaccine, inactivated2 06/27/13 Given pneumococcal 23-valent vaccine3 10/19/14 Given Hx influenza vaccine-unspecified4 06/27/13 Given 1Result Comment: Patient waited in room ten mins no allergic reaction. 2Result Comment: fluzone (>3 yrs.) [[id number]]. Migrated from OBS ; Data migrated from [employer] on 08/28/2015. 3Result Comment: [facility]#[id number] ; Data migrated from [employer] on 08/29/2015. 4Result Comment: done. Migrated from OBS ; Data migrated from [employer] on 08/28/2015. Procedures Procedure Date Related Diagnosis Body Site Partial thyroidectomy1 2012 1Left sided. Social History Social History Type Response Alcohol Current, Type Beer. Frequency: Daily. Smoking Status Former smoker; Ready to change: No; Concerns about tobacco use in household: No; Exposure to Tobacco Smoke None; Cigarette Smoking Last 365 Days No; Reg Smoking Cessation Counseling No Assessment and Plan No data available for this section
--- OUTSIDE RECORDS SUMMARY | 2019-03-16 08:40 | XMS REPORT | Summary of Care ---
Author Author [facility] Organization [facility] Address Unknown Phone Unavailable Encounter GERMÁN Zhang(FIN) [id number] Date(s): 10/04/18 - 10/04/18 [facility] [address], [address] [place] [address] [phone] Discharge Disposition: Home or Self Care Attending Physician: Radha Sal MD Vital Signs Most recent to 1 oldest [Reference Range]: Height 170.18 cm (10/04/18 11:27 AM) Temperature Oral 98.1 DegF [96.4-99.1 DegF] (10/04/18 11:27 AM) Blood Pressure 138/80 mmHg [90-140/60-90 mmHg] (10/04/18 11:27 AM) Respiratory Rate 16 BRMIN [14-20 BRMIN] (10/04/18 11:27 AM) Peripheral Pulse 86 bpm Rate [60-100 bpm] (10/04/18 11:27 AM) Weight 78.182 kg (10/04/18 11:27 AM) Body Mass Index 27 m2 (10/04/18 11:27 AM) Problem List Condition Effective Dates Status [...] Substance Reaction Severity Status penicillins Active Medications acetic acid otic 2% solution 5 drp, BOTH EARS, TID, X 7 day, # 15 ml, 0 Refill(s), Pharmacy: [id number] Start Date: 10/04/18 Stop Date: 10/11/18 Status: Ordered Results No data available for [...] allergic reaction. 2Result Comment: fluzone (>3 yrs.) [[id number]]. Migrated from OBS ; Data migrated from [employer] on 08/28/2015. 3Result Comment: [facility]#[id number] ; Data migrated from [employer] on 08/29/2015. 4Result Comment: done. Migrated from OBS ; Data migrated from [employer] on 08/28/2015. Procedures Procedure Date Related Diagnosis [...] Smoking Cessation Counseling No entered on: 10/04/18 Assessment and Plan No data available for this section
--- OUTSIDE RECORDS SUMMARY | 2019-03-16 08:40 | XMS REPORT | Summary of Care ---
Author Author [facility] Organization [facility] Address Unknown Phone Unavailable Encounter HQ Vicente(FIN) [id number] Date(s): 04/03/18 - 04/03/18 [facility] [address] [place] [address] Encounter Diagnosis Nontoxic single thyroid nodule (Final) - 04/08/18 Discharge Disposition: Home or Self Care Attending [...] allergic reaction. 2Result Comment: fluzone (>3 yrs.) [[id number]]. Migrated from OBS ; Data migrated from [employer] on 08/28/2015. 3Result Comment: [facility]#[id number] ; Data migrated from [employer] on 08/29/2015. 4Result Comment: done. Migrated from OBS ; Data migrated from [employer] on 08/28/2015. Procedures Procedure Date Related Diagnosis [...]
--- OUTSIDE RECORDS SUMMARY | 2019-03-16 08:40 | XMS REPORT | Summary of Care ---
Author Author [facility] Organization [facility] Address Unknown Phone Unavailable Encounter GERMÁN Zhang(FIN) [id number] Date(s): 03/24/18 - 03/24/18 [facility] [address], [address] [place], [place] [address]- [phone] Discharge Disposition: Home or Self Care Attending Physician: Radha Sal MD Vital Signs Most recent to 1 oldest [Reference Range]: Height 170.18 cm (03/24/18 7:44 AM) Temperature Oral 97.3 DegF [96.4-99.1 DegF] (03/24/18 7:44 AM) Blood Pressure 115/72 mmHg [90-140/60-90 mmHg] (03/24/18 7:44 AM) Respiratory Rate 16 BRMIN [14-20 BRMIN] (03/24/18 7:44 AM) Peripheral Pulse 73 bpm Rate [60-100 bpm] (03/24/18 7:44 AM) Weight 78.182 kg (03/24/18 7:44 AM) Body Mass Index 27 m2 (03/24/18 7:44 AM) Problem List Condition Effective Dates [...] day, # 120 mL, 0 Refill(s), [id number] Start Date: 03/24/18 Stop Date: 04/01/18 Status: Completed Results No data available for [...] allergic reaction. 2Result Comment: fluzone (>3 yrs.) [[id number]]. Migrated from OBS ; Data migrated from [employer] on 08/28/2015. 3Result Comment: [facility]#[id number] ; Data migrated from [employer] on [...]
--- OUTSIDE RECORDS SUMMARY | 2019-03-16 08:40 | XMS REPORT | Summary of Care ---
Author Author [facility] Organization [facility] Address Unknown Phone Unavailable Encounter HQ Vicente(FIN) [id number] Date(s): 03/22/15 - 03/22/15 [facility] [address] [place], [place] [address] [phone] Discharge Disposition: Home Attending Physician: Radha Sal MD Vital Signs No data available for this section Problem List Condition Effective Dates Status Health Status Informant Abdominal aortic 10/19/14 Active aneurysm1 Benign essential 06/27/13 Active hypertension2, 3 Benign prostatic 06/27/13 Active hyperplasia4 Cough5 10/19/14 Active Ex-smoker6 10/19/14 Active Fatigue7, 8 06/27/13 Active History of subtotal 11/16/14 Active thyroidectomy9, 10 Ndjnpuljmwhgbp91, 12 06/27/13 Active Liver function tests 02/08/15 Active ndlwkjpi50 Mass of thyroid 10/19/14 Active gland14 Onychomycosis of 10/19/14 Active gwhhpnfy43 Pleural tmkjwoyz09 02/08/15 Active Screening - health 10/19/14 Active check17 Screening for 10/19/14 Active malignant neoplasm of Thyroid , 20 11/16/14 Active Tinea pedis21 10/19/14 Active Type 2 diabetes 06/27/13 Active fxhxfitg40, 23 Type II diabetes 07/04/13 Active mellitus gpbkzpxvoslg25, 25 1Data migrated from [employer] on 01/31/15. 2Data migrated from [employer] on 03/05/15. 3Data migrated from [employer] on 12/26/14. 4Data migrated from [employer] on 12/26/14. 5Data migrated from [employer] on 01/31/15. 6Data migrated from [employer] on 01/31/15. 7Data migrated from [employer] on 03/05/15. 8Data migrated from [employer] on 12/26/14. 9Data migrated from [employer] on 02/28/15. 10Data migrated from [employer] on 01/31/15. 11Data migrated from [employer] on 03/05/15. 12Data migrated from [employer] on 12/26/14. 13Data migrated from [employer] on 02/28/15. 14Data migrated from [employer] on 01/31/15. 15Data migrated from [employer] on 01/31/15. 16Data migrated from [employer] on 02/28/15. 17Data migrated from [employer] on 01/31/15. 18Data migrated from [employer] on 01/31/15. 19Data migrated from [employer] on 02/28/15. 20Data migrated from [employer] on 01/31/15. 21Data migrated from [employer] on 01/31/15. 22Data migrated from [employer] on 03/05/15. 23Data migrated from [employer] on 12/26/14. 24Data migrated from [employer] on 03/05/15. 25Data migrated from [employer] on 12/26/14. Allergies, Adverse Reactions, Alerts Substance Reaction Severity Status penicillins Active Medications No data available for this section Results No data available for this section Immunizations No data available for this section Procedures No data available for this section Social History No data available for this section Assessment and Plan No data available for this section
--- OUTSIDE RECORDS SUMMARY | 2019-03-16 08:41 | XMS REPORT | Continuity of Care Document ---
Author Author [facility] [employer] [facility] Organization [facility] Address Unknown Phone Unavailable Care Team Providers Care Applied Mathematician Name Role Phone MD Jonelle, Radha MOREIRA Unavailable Insurance Providers Payer name Policy type / Coverage type Policy ID Covered libertarian ID Policy Santiago [employer] (POS) [employer] (POS) [employer] (POS) [employer] (POS) [place] [employer] (POS) [employer] (POS) [employer] (POS) [employer] (POS) [employer] (POS) [employer] (POS) [employer] (POS) [employer] (POS) [employer] (POS) [employer] (POS) [employer] (POS) [employer] (POS) [employer] (POS) [employer] (POS) [employer] (POS) Encounters Encounter Performer Location Date Lab Report Radha Sal MD [facility] Feb 03, 2015 Allergies, Adverse Reactions, Alerts Type Substance Reaction Status Drug allergy PCN numbness and passed out Active Problems Problem Effective Dates Problem Status DIABETES MELLITUS, TYPE II Jun 27, 2013 Inactive ESSENTIAL HYPERTENSION, BENIGN Jun 27, 2013 Active HYPERLIPIDEMIA Jun 27, 2013 Active SCREENING, COLON CANCER Jun 27, 2013 Active FATIGUE Jun 27, 2013 Active HYPERTROPHY PROSTATE W/O UR OBST & OTH LUTS Jun 27, 2013 Active ACUTE BRONCHITIS Jun 27, 2013 Inactive DIABETES MELLITUS, TYPE II, UNCONTROLLED Jul 04, 2013 Active BODY MASS INDEX 28.0-28.9, ADULT Oct 19, 2014 Active THYROID MASS Oct 19, 2014 Active AAA Oct 19, 2014 Active HX OF SMOKER Oct 19, 2014 Active COUGH Oct 19, 2014 Active PROSTATE NEOPLASM SCREENING Oct 19, 2014 Active ONYCHOMYCOSIS, TOENAILS Oct 19, 2014 Active TINEA PEDIS Oct 19, 2014 Active PREVENTIVE HEALTH CARE Oct 19, 2014 Active SCREENING FOR GLAUCOMA Oct 19, 2014 Active NEED FOR PROPHYLACTIC VACCINATION AGAINST STREPTOCOCCUS PNEUMONIAE [PNEUMOCOCCUS] Oct 19, 2014 Active THYROIDECTOMY, SUBTOTAL, HX OF Nov 16, 2014 Active THYROID NODULE Nov 16, 2014 Active Procedures Date Description Comments Jun 27, 2013 smoking status never smoker Oct 19, 2014 smoking status Former smoker Oct 19, 2014 diabetic foot check yes Nov 09, 2014 smoking status Former smoker Medications Medication Instructions Start Date Status ZITHROMAX Z-NEHEMIAS 250 MG TABS Use as directed Jun 27, 2013 Inactive MUCINEX 600 MG [id number] Take one tablet every 12 hours Jun 27, 2013 Inactive ATORVASTATIN CALCIUM 10 MG TABS Take one tablet by mouth once a day Jul 04, 2013 Active ALBUTEROL SULFATE 0.63 MG/3ML NEBU nebs every 6 hours only as needed Jul 04, 2013 Active LISINOPRIL 10 MG TABS take one tablet by mouth daily Jun 27, 2013 Active NYSTATIN-TRIAMCINOLONE 326175-3.1 UNIT/GM-% CREA Apply afected area twice a day as needed Oct 19, 2014 Active CORTISPORIN 3.5-41443-3 SOLN apply 4 ggts in ears three times a day for a week Oct 19, 2014 Active METFORMIN HCL 500 MG TABS Take one tablet by mouth two times a day Jul 04, 2013 Active GLIPIZIDE 5 MG TABS Take one tablet by mouth two times a day Jul 04, 2013 Active Immunizations Vaccine Date Status influenza immunization (Flu Vax) has been administered Jun 27, 2013 completed Vital Signs Date Description Test Result Jun 27, 2013 respiratory rate E&M - 9279-1 RESP RATE 16 /min Jun 27, 2013 height E&M - 8302-2 HEIGHT 66 in Jun 27, 2013 blood pressure, systolic - 8480-6 BP SYSTOLIC 131 mm Hg Jun 27, 2013 blood pressure, diastolic - 8462-4 BP DIASTOLIC 83 mm Hg Jun 27, 2013 weight E&M - 3141-9 WEIGHT 166 lb Jun 27, 2013 pulse rate E&M - 8867-4 PULSE RATE 81 /min Jun 27, 2013 temperature E&M TEMPERATURE 98.9 deg f Jul 04, 2013 weight E&M - 3141-9 WEIGHT 172.38 lb Jul 04, 2013 respiratory rate E&M - 9279-1 RESP RATE 16 /min Jul 04, 2013 pulse rate E&M - 8867-4 PULSE RATE 87 /min Jul 04, 2013 blood pressure, systolic - 8480-6 BP SYSTOLIC 124 mm Hg Jul 04, 2013 blood pressure, diastolic - 8462-4 BP DIASTOLIC 74 mm Hg Oct 19, 2014 height E&M - 8302-2 HEIGHT 66 in Oct 19, 2014 weight E&M - 3141-9 WEIGHT 174 lb Oct 19, 2014 temperature E&M TEMPERATURE 98.5 deg f Oct 19, 2014 respiratory rate E&M - 9279-1 RESP RATE 16 /min Oct 19, 2014 pulse rate E&M - 8867-4 PULSE RATE 75 /min Oct 19, 2014 blood pressure, systolic - 8480-6 BP SYSTOLIC 153 mm Hg Oct 19, 2014 blood pressure, diastolic - 8462-4 BP DIASTOLIC 87 mm Hg Nov 09, 2014 height E&M - 8302-2 HEIGHT 66 in Nov 09, 2014 weight E&M - 3141-9 WEIGHT 174 lb Nov 09, 2014 temperature E&M TEMPERATURE 97.6 deg f Nov 09, 2014 respiratory rate E&M - 9279-1 RESP RATE 16 /min Nov 09, 2014 blood pressure, systolic - 8480-6 BP SYSTOLIC 127 mm Hg Nov 09, 2014 blood pressure, diastolic - 8462-4 BP DIASTOLIC 78 mm Hg Nov 09, 2014 pulse rate E&M - 8867-4 PULSE RATE 83 /min Results Date Description Test Name Value Reference Interpretation Status Jun 27, 2013 hemoglobin, blood HGB 15.5 g/dL 14.0-18.0 Jun 27, 2013 hematocrit, blood HCT 45.3 % 42.0-54.0 Jun 27, 2013 platelet count PLATELETS 149 K/CMM /mm3 133-450 Oct 19, 2014 hemoglobin, blood HGB 15.4 g/dL 14.0-18.0 Oct 19, 2014 hematocrit, blood HCT 44.1 % 42.0-54.0 Oct 19, 2014 platelet count PLATELETS 149 K/CMM /mm3 133-450 Jun 27, 2013 hemoglobin A1C, blood, as % of total hemoglobin HGBA1C 8.0 % <=5.6 High Jun 27, 2013 thyroid stimulating hormone, serum TSH 1.730 uIU/mL 0.360-3.740 Jun 27, 2013 cholesterol, serum CHOLESTEROL 143 mg/dl <=199 Jun 27, 2013 triglyceride, serum, fasting TRIGLYCERIDE 122 mg/dl <=149 Jun 27, 2013 HDL cholesterol, serum HDL 37 mg/dl >=61 Low Jun 27, 2013 LDL cholesterol, serum LDL 82 mg/dl <=99 Jun 27, 2013 sodium, serum SODIUM 140 MEQ/L mmol/L 135-145 Jun 27, 2013 potassium, serum POTASSIUM 3.8 MEQ/L mmol/L 3.5-5.1 Jun 27, 2013 creatinine, serum CREATININE 0.9 mg/dL 0.5-1.4 Jun 27, 2013 urea nitrogen, blood BUN 16 mg/dL 7-Jun 27, 2013 urea nitrogen/creatinine ratio, serum BUN/CREAT 18 null 6-25 Jun 27, 2013 albumin, serum ALBUMIN 3.9 g/dL 3.5-5.0 Jun 27, 2013 calcium, serum CALCIUM 9.2 mg/dL 8.5-10.5 Jun 27, 2013 alanine aminotransferase (SGPT), serum SGPT (ALT) 46 U/L 0-65 Jun 27, 2013 aspartate aminotransferase (SGOT), serum SGOT (AST) 35 U/L 0-37 Jun 27, 2013 alkaline phosphatase, serum ALK PHOS 111 U/L 39-136 Jun 27, 2013 prostate specific antigen PSA 0.91 ng/mL 0.00-4.00 Oct 19, 2014 hemoglobin A1C, blood, as % of total hemoglobin HGBA1C 8.5 % <=5.6 High Oct 19, 2014 thyroid stimulating hormone, serum TSH 3.210 uIU/mL 0.360-3.740 Oct 19, 2014 cholesterol, serum CHOLESTEROL 125 mg/dl <=199 Oct 19, 2014 triglyceride, serum, fasting TRIGLYCERIDE 122 mg/dl <=149 Oct 19, 2014 HDL cholesterol, serum HDL 41 mg/dl >=61 Low Oct 19, 2014 LDL cholesterol, serum LDL 60 mg/dl <=99 Oct 19, 2014 sodium, serum SODIUM 138 MEQ/L mmol/L 135-145 Oct 19, 2014 potassium, serum POTASSIUM 3.6 MEQ/L mmol/L 3.5-5.1 Oct 19, 2014 creatinine, serum CREATININE 0.8 mg/dL 0.5-1.4 Oct 19, 2014 urea nitrogen, blood BUN 12 mg/dL 7-Oct 19, 2014 urea nitrogen/creatinine ratio, serum BUN/CREAT 15 null 6-25 Oct 19, 2014 albumin, serum ALBUMIN 3.9 g/dL 3.5-5.0 Oct 19, 2014 calcium, serum CALCIUM 8.9 mg/dL 8.5-10.5 Oct 19, 2014 alanine aminotransferase (SGPT), serum SGPT (ALT) 50 U/L 0-65 Oct 19, 2014 aspartate aminotransferase (SGOT), serum SGOT (AST) 36 U/L 0-37 Oct 19, 2014 alkaline phosphatase, serum ALK PHOS 120 U/L 39-136 Oct 19, 2014 prostate specific antigen PSA 1.75 ng/mL 0.00-4.00 Oct 22, 2014 occult blood, stool (E&M) HEMOCCULT Negative null Negative Oct 23, 2014 occult blood, stool (E&M) HEMOCCULT Negative null Negative Oct 24, 2014 occult blood, stool (E&M) HEMOCCULT Negative null Negative Feb 01, 2015 hemoglobin A1C, blood, as % of total hemoglobin HGBA1C 7.2 % <=5.6 High Feb 01, 2015 sodium, serum SODIUM 138 MEQ/L mmol/L 135-145 Feb 01, 2015 potassium, serum POTASSIUM 4.0 MEQ/L mmol/L 3.5-5.1 Feb 01, 2015 creatinine, serum CREATININE 0.8 mg/dL 0.5-1.4 Feb 01, 2015 urea nitrogen, blood BUN 15 mg/dL -Feb 01, 2015 urea nitrogen/creatinine ratio, serum BUN/CREAT 19 null -Feb 01, 2015 albumin, serum ALBUMIN 4.1 g/dL 3.5-5.0 Feb 01, 2015 calcium, serum CALCIUM 9.4 mg/dL 8.5-10.5 Feb 01, 2015 alanine aminotransferase (SGPT), serum SGPT (ALT) 61 U/L 0-65 Feb 01, 2015 aspartate aminotransferase (SGOT), serum SGOT (AST) 46 U/L 0-37 High Feb 01, 2015 alkaline phosphatase, serum ALK PHOS 106 U/L 39-136 Feb 03, 2015 hemoglobin A1C, blood, as % of total hemoglobin HGBA1C 7.2 % <=5.6 High Feb 03, 2015 sodium, serum SODIUM 138 MEQ/L mmol/L 135-145 Feb 03, 2015 potassium, serum POTASSIUM 4.0 MEQ/L mmol/L 3.5-5.1 Feb 03, 2015 creatinine, serum CREATININE 0.8 mg/dL 0.5-1.4 Feb 03, 2015 urea nitrogen, blood BUN 15 mg/dL -Feb 03, 2015 urea nitrogen/creatinine ratio, serum BUN/CREAT 19 null -25 Feb 03, 2015 albumin, serum ALBUMIN 4.1 g/dL 3.5-5.0 Feb 03, 2015 calcium, serum CALCIUM 9.4 mg/dL 8.5-10.5 Feb 03, 2015 alanine aminotransferase (SGPT), serum SGPT (ALT) 61 U/L 0-65 Feb 03, 2015 aspartate aminotransferase (SGOT), serum SGOT (AST) 46 U/L 0-37 High Feb 03, 2015 alkaline phosphatase, serum ALK PHOS 106 U/L 39-136
--- OUTSIDE RECORDS SUMMARY | 2019-03-16 08:41 | XMS REPORT | Continuity of Care Document ---
Author Author [facility] Organization [facility] Address Unknown Phone Unavailable Care Team Providers Care Motion Picture Scene Builder Name Role Phone MD Jonelle, Radha MOREIRA Unavailable Insurance Providers Payer name Policy type / Coverage type Policy ID Covered green party ID Policy Santiago [employer] (POS) [employer] (POS) [employer] (POS) [employer] (POS) [place] B[place] [employer] (POS) [employer] (POS) [employer] (POS) [employer] (POS) [employer] (POS) [employer] (POS) [employer] (POS) [employer] (POS) [employer] (POS) [employer] (POS) [employer] (POS) Encounters Encounter Performer Location Date Lab Report Radha Sal MD [facility] [employer] [facility] Oct 24, 2014 Allergies, Adverse Reactions, Alerts Type Substance Reaction [...] STREPTOCOCCUS PNEUMONIAE [PNEUMOCOCCUS] Oct 19, 2014 Active Procedures Date Description Comments Jun 27, 2013 smoking status never smoker Oct 19, 2014 smoking status Former smoker Oct 19, 2014 diabetic foot check yes Medications Medication Instructions Start Date Status ZITHROMAX Z-NEHEMIAS 250 MG TABS Use as directed Jun 27, 2013 Inactive MUCINEX 600 MG [id number] Take one tablet every 12 hours Jun 27, 2013 Inactive METFORMIN HCL 1000 MG TABS Take one tablet by mouth two times a day Jul 04, 2013 Active ATORVASTATIN CALCIUM 10 MG TABS Take one tablet by mouth once a day Jul 04, 2013 Active ALBUTEROL SULFATE 0.63 MG/3ML NEBU nebs every 6 hours only as needed Jul 04, 2013 Active GLIPIZIDE 5 MG TABS Take one tablet by mouth once a day Jul 04, 2013 Active LISINOPRIL 10 MG TABS take one tablet by mouth daily Jun 27, 2013 Active NYSTATIN-TRIAMCINOLONE 813284-8.1 UNIT/GM-% CREA Apply afected area twice a day as needed Oct 19, 2014 Active CORTISPORIN 3.5-28156-8 SOLN apply 4 ggts in ears three times a day for a week Oct 19, 2014 Active Immunizations Vaccine Date Status influenza immunization [...] - 8462-4 BP DIASTOLIC 87 mm Hg Results Date Description Test Name Value Reference [...] 2013 urea nitrogen, blood BUN 16 mg/dL 7-22 Jun 27, 2013 urea nitrogen/creatinine ratio, serum BUN/CREAT [...] urea nitrogen/creatinine ratio, serum BUN/CREAT 15 null 6-Oct 19, 2014 albumin, serum ALBUMIN 3.9 g/dL [...]
--- OUTSIDE RECORDS SUMMARY | 2019-03-16 08:41 | XMS REPORT | Continuity of Care Document ---
Author Author [facility] Organization [facility] Address Unknown Phone Unavailable Care Team Providers Care Business Management Associate Name Role Phone MD Jonelle, Radha MOREIRA Unavailable Insurance Providers Payer name Policy type / Coverage type Policy ID Covered green party ID Policy Santiago [employer] (POS) [employer] (POS) [employer] (POS) [employer] (POS) [place] [place] [employer] (POS) [employer] (POS) [employer] (POS) [employer] (POS) [employer] (POS) [employer] (POS) [employer] (POS) [employer] (POS) [employer] (POS) [employer] (POS) [employer] (POS) [employer] (POS) [employer] (POS) [employer] (POS) [employer] (POS) Encounters Encounter Performer Location Date Office Visit Radha Sal MD [facility] [employer] [facility] Nov 09, 2014 Allergies, Adverse Reactions, Alerts Type Substance [...] Jun 27, 2013 Inactive MUCINEX 600 MG [id number] Take one tablet every 12 hours Jun 27, 2013 Inactive ATORVASTATIN CALCIUM 10 MG TABS Take one tablet by mouth once a day Jul 04, 2013 Active ALBUTEROL SULFATE 0.63 MG/3ML NEBU nebs every 6 hours only as needed Jul 04, 2013 Active LISINOPRIL 10 MG TABS take one tablet by mouth daily Jun 27, 2013 Active NYSTATIN-TRIAMCINOLONE 206493-0.1 UNIT/GM-% CREA Apply afected area twice a day as needed Oct 19, 2014 Active CORTISPORIN 3.5-74302-8 SOLN apply 4 ggts in ears three [...]
--- OUTSIDE RECORDS SUMMARY | 2019-03-16 08:41 | XMS REPORT | Continuity of Care Document ---
Author Author [facility] Organization [facility] Address Unknown Phone Unavailable Care Team Providers Care Switchboard Operator Supervisor Name Role Phone MD Jonelle, Radha MOREIRA Unavailable Insurance Providers Payer name Policy type / Coverage type Policy ID Covered alliance party ID Policy [place] [facility] (POS) [facility] (POS) [facility] (POS) [facility] (POS) [place] [employer] [facility] (POS) [facility] (POS) [facility] (POS) [facility] [employer] (POS) [employer] (POS) [employer] (POS) [employer] (POS) [place] [facility] [employer] (POS) [place] [facility] [employer] (POS) [facility] (POS[facility] (POS) [facility] (POS) [facility] (POS) [facility] (POS) [facility] (POS) [facility] (POS) [facility] (POS) [facility] (POS) [facility] (POS) Encounters Encounter Performer Location Date Office Visit Radha Sal MD [facility] Feb 08, 2015 Allergies, Adverse Reactions, Alerts Type Substance [...] Active THYROID NODULE Nov 16, 2014 Active PLEURAL EFFUSION Feb 08, 2015 Active ABNORMAL LIVER FUNCTION TESTS Feb 08, 2015 Active Procedures Date Description Comments Jun 27, 2013 smoking status never smoker Oct 19, 2014 smoking status Former smoker Oct 19, 2014 diabetic foot check yes Nov 09, 2014 smoking status Former smoker Feb 08, 2015 smoking status Former smoker Medications Medication Instructions Start Date Status ZITHROMAX Z-NEHEMIAS 250 MG TABS Use as directed Jun 27, 2013 Inactive MUCINEX 600 MG [id number] Take one tablet every 12 hours Jun 27, 2013 Inactive ATORVASTATIN CALCIUM 10 MG TABS Take one tablet by mouth once a day Jul 04, 2013 Active LISINOPRIL 10 MG TABS take one tablet by mouth daily Jun 27, 2013 Active METFORMIN HCL 500 MG TABS Take one tablet by mouth two times a day Jul 04, 2013 Active GLIPIZIDE 5 MG TABS Take one tablet by mouth two times a day Jul 04, 2013 Active ALBUTEROL SULFATE 0.63 MG/3ML NEBU nebs every 6 hours only as needed Jul 04, 2013 Inactive NYSTATIN-TRIAMCINOLONE 099751-2.1 UNIT/GM-% CREA Apply afected area twice a day as needed Oct 19, 2014 Inactive CORTISPORIN 3.5-38037-1 SOLN apply 4 ggts in ears three times a day for a week Oct 19, 2014 Inactive Immunizations Vaccine Date Status influenza immunization (Flu [...] E&M - 8867-4 PULSE RATE 83 /min Feb 08, 2015 height E&M - 8302-2 HEIGHT 66 in Feb 08, 2015 weight E&M - 3141-9 WEIGHT 178 lb Feb 08, 2015 temperature E&M TEMPERATURE 97.9 deg f Feb 08, 2015 respiratory rate E&M - 9279-1 RESP RATE 14 /min Feb 08, 2015 pulse rate E&M - 8867-4 PULSE RATE 75 /min Feb 08, 2015 blood pressure, systolic - 8480-6 BP SYSTOLIC 131 mm Hg Feb 08, 2015 blood pressure, diastolic - 8462-4 BP DIASTOLIC 75 mm Hg Results Date Description Test Name [...] urea nitrogen/creatinine ratio, serum BUN/CREAT 15 null -Oct 19, 2014 albumin, serum ALBUMIN 3.9 g/dL [...] 2015 urea nitrogen, blood BUN 15 mg/dL 7-22 Feb 03, 2015 urea nitrogen/creatinine ratio, serum BUN/CREAT 19 null 6-25 Feb 03, 2015 albumin, serum ALBUMIN 4.1 g/dL 3.5-5.0 Feb 03, 2015 calcium, serum CALCIUM 9.4 mg/dL 8.5-10.5 Feb 03, 2015 alanine aminotransferase (SGPT), serum SGPT (ALT) 61 U/L 0-65 Feb 03, 2015 aspartate aminotransferase (SGOT), serum SGOT (AST) 46 U/L 0-37 High Feb 03, 2015 alkaline phosphatase, serum ALK PHOS 106 U/L 39-136
--- OUTSIDE RECORDS SUMMARY | 2019-03-16 08:41 | XMS REPORT | Continuity of Care Document ---
Author [facility] Organization [facility] Address Unknown Phone Unavailable Care Team Providers Care Privacy Specialist Name Role Phone MD Jonelle, Radha MOREIRA Unavailable Insurance Providers Payer name Policy type / Coverage type Policy ID Covered republican ID Policy Santiago [employer] (POS) [employer] (POS) [employer] (POS) [employer] (POS) [place] [employer] (POS) [employer] (POS) [employer] (POS) [employer] (POS) [employer] (POS) [employer] (POS) [employer] (POS) [employer] (POS) [employer] (POS) [employer] (POS) [employer] (POS) Encounters Encounter Performer Location Date Lab Report Radha Sal MD [facility] [facility] Oct 19, 2014 Allergies, Adverse Reactions, Alerts Type Substance [...] Jun 27, 2013 Inactive MUCINEX 600 MG [id number] Take one tablet every 12 hours Jun [...] mouth daily Jun 27, 2013 Active NYSTATIN-TRIAMCINOLONE 943503-8.1 UNIT/GM-% CREA Apply afected area twice a day as needed Oct 19, 2014 Active CORTISPORIN 3.5-53452-6 SOLN apply 4 ggts in ears three [...] 2014 urea nitrogen, blood BUN 12 mg/dL 7-22 Oct 19, 2014 urea nitrogen/creatinine ratio, serum BUN/CREAT [...]
--- OUTSIDE RECORDS SUMMARY | 2019-03-16 08:41 | XMS REPORT | Continuity of Care Document ---
Author Author [facility] Address Unknown Phone Unavailable Care Team Providers Care Detention Attendant Name Role Phone MD Jonelle, Radha MOREIRA Unavailable Insurance Providers Payer name Policy type / Coverage type Policy ID Covered constitution party ID Policy Santiago [employer] (POS) [employer] (POS[employer] (POS) [employer] (POS) [place] (POS) [employer] (POS) [employer] (POS) [employer] (POS) [employer] (POS) [employer] (POS) [employer] (POS) [employer] (POS) [employer] (POS) [employer] (POS) [employer] (POS) Encounters Encounter Performer Location Date Office Visit Radha Sal MD [facility] Oct 19, 2014 [...] Jun 27, 2013 Inactive MUCINEX 600 MG [id number] Take one tablet every 12 hours Jun [...] mouth daily Jun 27, 2013 Active NYSTATIN-TRIAMCINOLONE 735143-4.1 UNIT/GM-% CREA Apply afected area twice a day as needed Oct 19, 2014 Active CORTISPORIN 3.5-52638-7 SOLN apply 4 ggts in ears three [...]
--- OUTSIDE RECORDS SUMMARY | 2019-03-16 08:41 | XMS REPORT | Continuity of Care Document ---
Author Author [facility] Organization [facility] Address Unknown Phone Unavailable Care Team Providers Care Dental Assisting Instructor Name Role Phone MD Jonelle, Radha MOREIRA Unavailable Insurance Providers Payer name Policy type / Coverage type Policy ID Covered democrat ID Policy [place] [facility] (POS) [employer] [facility] [employer] (POS[employer] [facility] [employer] (POS) [employer] [facility] (POS) [place] [employer] (POS) [employer] (POS) [employer] [facility] [employer] (POS) [employer] (POS) [employer] (POS[employer] (POS) [employer] (POS) [employer] (POS) [employer] (POS) [employer] [facility] (POS) [employer] [facility] (POS) [employer] [facility] (POS) [employer] [facility] (POS) [employer] (POS) [employer] (POS) Encounters Encounter Performer Location Date Lab Report Radha Sal MD [facility] [place] Feb 01, 2015 Allergies, Adverse Reactions, Alerts Type Substance [...] Jun 27, 2013 Inactive MUCINEX 600 MG [id number] Take one tablet every 12 hours Jun 27, 2013 Inactive ATORVASTATIN CALCIUM 10 MG TABS Take one tablet by mouth once a day Jul 04, 2013 Active ALBUTEROL SULFATE 0.63 MG/3ML NEBU nebs every 6 hours only as needed Jul 04, 2013 Active LISINOPRIL 10 MG TABS take one tablet by mouth daily Jun 27, 2013 Active NYSTATIN-TRIAMCINOLONE 951940-5.1 UNIT/GM-% CREA Apply afected area twice a day as needed Oct 19, 2014 Active CORTISPORIN 3.5-41994-4 SOLN apply 4 ggts in ears three [...] nitrogen, blood BUN 15 mg/dL 7-22 Feb 01, 2015 urea nitrogen/creatinine ratio, serum BUN/CREAT 19 null 6-25 Feb 01, 2015 albumin, serum ALBUMIN 4.1 g/dL 3.5-5.0 Feb 01, 2015 calcium, serum CALCIUM 9.4 mg/dL 8.5-10.5 Feb 01, 2015 alanine aminotransferase (SGPT), serum SGPT (ALT) 61 U/L 0-65 Feb 01, 2015 aspartate aminotransferase (SGOT), serum SGOT (AST) 46 U/L 0-37 High Feb 01, 2015 alkaline phosphatase, serum ALK PHOS 106 U/L 39-136
[2019-03-16] MEDS ORDERED: DIAZEPAM 2 MG TAB PO ONE (08:45)
[2019-03-16] MEDS ORDERED: KETOROLAC TROMETHAMINE 60 MG/2 ML VIAL IM ONE (08:45)
[2019-03-16 09:13] LABS: BILIRUBIN,URINE NEGATIVE (NEGATIVE); CLARITY,URINE CLEAR (CLEAR); COLOR,URINE YELLOW (YELLOW); KETONES,URINE 1+ (NEGATIVE); LEUKOCYTE ESTERASE ,URINE NEGATIVE (NEGATIVE); NITRITE,URINE NEGATIVE (NEGATIVE); PROTEIN,URINE DIPSTICK NEGATIVE (NEGATIVE); URINE UROBILINOGEN 0.2 mg/dL (0.2 - 1)
[2019-03-16 09:44] LABS: RBC,URINE 0-5 /HPF (0-5); WBC,URINE (MAN) 0-5 /HPF (0-5)
[2019-03-16 09:45] LABS: BACTERIA,URINE RARE /HPF; EPITHELIAL CELLS,URINE FEW /LPF
--- NOTE | 2019-03-16 09:51 | NUR ---
PATIENT TO RADIOLOGY AT THIS TIME
--- NOTE | 2019-03-16 10:01 | Diagnostic Imaging Report ---
Hips and bilateral pelvis, 5 views. History: Right hip pain, trauma. Findings: Vascular calcifications are noted bilaterally. Bone mineralization is normal. There is no evidence of fracture or dislocation. There are no lytic or sclerotic lesions. The SI and hip joints are within normal limits. IMPRESSION: No acute traumatic abnormality. Signed by: Benjamin Trinh on 03/16/2019 9:58 AM
[2019-03-16] MEDS ORDERED: NAPROXEN250 MG PO (10:10)
[2019-03-16] MEDS ORDERED: ROBAXIN-750750 MG PO (10:10)
[2019-03-16 10:28] VITALS: BP 128/73
== END 2019-03-16 10:20 | disposition home or self-care (01) ==
LOC: ER 08:37
DX: S39.012A Strain of muscle, fascia and tendon of lower back, initial encounter (principal); M25.551 Pain in right hip; X50.0XXA Overexertion from strenuous movement or load, initial encounter; Y92.89 Other specified places as the place of occurrence of the external cause; Y99.0 Civilian activity done for income or pay
CPT/HCPCS: 73522; 81001; 99283; J1885